=== PATIENT | female | born 1975 | race Caucasian/White ===

== ENCOUNTER 2018-09-14 16:11 | Emergency (ER) | payer SELFPAY ==
[~2018-09-14] VITALS: Ht 165.1 cm; Wt 117.9 kg
[2018-09-14] MEDS ORDERED: cloNIDine 0.1 MG (CATAPRES) TAB ONE (16:43)
[2018-09-14] MEDS ORDERED: cloNIDine 0.2 MG (CATAPRES) TAB PO ONE ×2 (16:45→17:15)
[2018-09-14 17:44] LABS: HEMOGLOBIN 10.8 G/DL (11.5-16.0); RED CELL DISTRIBUTION WIDTH 15.2 % (10.0-14.5); WHITE BLOOD COUNT 8.6 10^3/uL (4.3-11.0)
--- NOTE | 2018-09-14 17:49 | ED Cardiac General ---
History of Present Illness General Chief Complaint: Cardiac/General Problems Stated Complaint: LT EYE BLEEDING, HIGH BP Source: patient Exam Limitations: no limitations History of Present Illness Date Seen by Provider: Sep 14, 2018 Time Seen by Provider: 17:42 Initial Comments Patient is a 43-year-old female long-standing history of hypertension medication noncompliance who presents with elevated blood pressure 220/or 110 at [facility] office. Patient was being evaluated by her [facility] for blurred vision off her left lower visual auguste. Patient was determined to have a retinal hemorrhage and has been referred to [facility] and has a follow-up appointment on Monday. All of the [facility] office, the patient was noted to be hypertensive. Patient does not have a primary care physician nor did she participate in routine healthcare. She has recently quit smoking. Denies headache, chest pain, palpitation, shortness of breath, decreased urinary prep, or increased peripheral edema. Denies acute symptoms at this time. Timing/Duration: other (years ) Allergies and Home Medications Allergies Coded Allergies: codeine (Verified Adverse Reaction, Intermediate, nausea and vomiting, ) Home Medications Labetalol HCl 100 Mg Tablet, 100 MG PO BID Prescribed by: ELLIOTT MUNIZ on 09/14/18 5271 Patient Home Medication List Home Medication List Reviewed: Yes Review of Systems Review of Systems Constitutional: see HPI EENTM: See HPI Respiratory: See HPI Cardiovascular: See HPI Gastrointestinal: See HPI Genitourinary: See HPI Musculoskeletal: see HPI Skin: see HPI Past Purgsym-Nhtitw-Hyihsj Hx Past Med/Social Hx: Reviewed Nursing Past Med/Soc Hx Patient Social History Alcohol Use: Denies Use Recreational Drug Use: No Smoking Status: Former Smoker Type Used: Cigarettes Former Smoker, Quit: Dec 08, 2015 2nd Hand Smoke Exposure: No Recent Foreign Travel: No Contact w/Someone Who Travel: No Recent Hopitalizations: No Physical Abuse: No Sexual Abuse: No Mistreated: No Fear: No Seasonal Allergies Seasonal Allergies: No Past Medical History Surgeries: Yes (carpal tunnel x 2) Tubal Ligation Respiratory: No Cardiac: Yes Hypertension Neurological: No Genitourinary: No Gastrointestinal: No Musculoskeletal: No Endocrine: No HEENT: No Cancer: No Psychosocial: No Physical Exam Vital Signs Capillary Refill : Less Than 3 Seconds Height, Weight, BMI Height: '" Weight: lbs. oz. kg; BMI Method: General Appearance: No Apparent Distress, WD/WN HEENT: PERRL/EOMI, Normal ENT Inspection, Other (dilated pupils) Neck: Supple Respiratory: Chest Non Tender, Lungs Clear Cardiovascular: Regular Rate, Rhythm, No Edema Neurologic/Psychiatric: Alert, Oriented x3, No Motor/Sensory Deficits Focused Exam Sepsis Stage: Ruled Out Progress/Results/Core Measures Results/Orders Lab Results Laboratory Tests Test 09/14/18 17:30 09/14/18 17:38 Range/Units White Blood Count 8.6 4.3-11.0 10^3/uL Red Blood Count 4.95 4.35-5.85 10^6/uL Hemoglobin 10.8 L 11.5-16.0 G/DL Hematocrit 36 35-52 % Mean Corpuscular Volume 73 L 80-99 FL Mean Corpuscular Hemoglobin 22 L 25-34 PG Mean Corpuscular Hemoglobin Concent 30 L 32-36 G/DL Red Cell Distribution Width 15.2 H 10.0-14.5 % Platelet Count 364 130-400 10^3/uL Mean Platelet Volume 10.0 7.4-10.4 FL Sodium Level 138 135-145 MMOL/L Potassium Level 4.1 3.6-5.0 MMOL/L Chloride Level 104 98-107 MMOL/L Carbon Dioxide Level 24 21-32 MMOL/L Anion Gap 10 5-14 MMOL/L Blood Urea Nitrogen 14 7-18 MG/DL Creatinine 0.62 0.60-1.30 MG/DL Estimat Glomerular Filtration Rate > 60 BUN/Creatinine Ratio 23 Glucose Level 105 70-105 MG/DL Calcium Level 9.1 8.5-10.1 MG/DL Urine Color YELLOW Urine Clarity CLEAR Urine pH 6.0 5-9 Urine Specific [place] 1.025 H 1.016-1.022 Urine Protein NEGATIVE NEGATIVE Urine Glucose (UA) NEGATIVE NEGATIVE Urine Ketones NEGATIVE NEGATIVE Urine Nitrite NEGATIVE NEGATIVE Urine Bilirubin NEGATIVE NEGATIVE Urine Urobilinogen 0.2 NORMAL MG/DL Urine Leukocyte Esterase NEGATIVE NEGATIVE Urine RBC (Auto) NEGATIVE NEGATIVE My Orders Orders - ELLIOTT MUNIZ DO Clonidine Tablet (Catapres Tablet) (09/14/18 16:45) Clonidine Tablet (Catapres Tablet) (09/14/18 16:43) Cbc No Diff (09/14/18 17:04) Basic Metabolic Panel (09/14/18 17:04) Urinalysis Dipstick Only (09/14/18 17:04) Labetalol Tablet (Normodyne Tablet) (09/14/18 18:30) Medications Given in ED Current Medications Medications Dose Ordered Sig/[place] Route Start Time Stop Time Status Last Admin Dose Admin Clonidine HCl 0.2 mg ONCE ONCE PO 09/14/18 16:45 09/14/18 16:46 DC 09/14/18 16:47 0.2 MG Labetalol HCl 200 mg ONCE ONCE PO 09/14/18 18:30 09/14/18 18:31 DC 09/14/18 18:21 200 MG Departure Communication (Admissions) Family Conversation Long-standing asymptomatic hypertension with exception of microvascular disease and possible retinal hemorrhage which is being addressed by ophthalmology. Will obtain baseline labs and start patient on blood pressure medications. Discussed with patient the need to follow-up with the primary care physician as her blood pressure will need to brought on gradually over the next several days. PCP referral provided. Return precautions reviewed Impression Primary Impression: Accelerated hypertension Disposition: HOME, SELF-CARE Condition: Improved Departure-Patient Inst. Referrals: NO,LOCAL PHYSICIAN (PCP) Primary Care Physician Patient Instructions: High Blood Pressure in Adults Add. Discharge Instructions: Please take newly prescribed medications as directed. Follow-up with local primary care physician in 3-5 days for reevaluation. Follow-up with [facility] as scheduled on Monday. All discharge instructions reviewed with patient and/or family. Voiced understanding. Scripts Labetalol HCl (Labetalol HCl) 100 Mg Tablet 100 MG PO BID, #60 TAB Prov: ELLIOTT MUNIZ DO 09/14/18 ELLIOTT MUNIZ DO Sep 14, 2018 17:49
[2018-09-14 17:53] LABS: COLOR,URINE YELLOW
[2018-09-14 17:54] LABS: BILIRUBIN,URINE NEGATIVE (NEGATIVE); CLARITY,URINE CLEAR; GLUCOSE, URINE (UA) NEGATIVE (NEGATIVE); KETONES,URINE NEGATIVE (NEGATIVE); LEUKOCYTE ESTERASE ,URINE NEGATIVE (NEGATIVE); NITRITE,URINE NEGATIVE (NEGATIVE); PROTEIN,URINE NEGATIVE (NEGATIVE); UROBILINOGEN,URINE 0.2 MG/DL (NORMAL)
[2018-09-14] MEDS ORDERED: LABETALOL 200 MG (NORMODYNE) TAB PO ONE (18:30)
[2018-09-14 18:36] LABS: CHLORIDE 104 MMOL/L (98-107); POTASSIUM 4.1 MMOL/L (3.6-5.0); SODIUM 138 MMOL/L (135-145)
[2018-09-14 18:37] LABS: BUN/CREATININE RATIO 23; CALCIUM 9.1 MG/DL (8.5-10.1); CARBON DIOXIDE 24 MMOL/L (21-32); CREATININE SERUM 0.62 MG/DL (0.60-1.30); GFR ESTIMATED > 60; GLUCOSE 105 MG/DL (70-105)
[2018-09-14] MEDS ORDERED: LABE100T6 PO (18:47)
[2018-09-14 19:03] VITALS: BP 130/87
== END 2018-09-14 19:05 | disposition home or self-care (01) ==
LOC: ER FS 16:13
DX: I10 Essential (primary) hypertension (principal); Z91.14 Patient's other noncompliance with medication regimen; Z88.5 Allergy status to narcotic agent; Z87.891 Personal history of nicotine dependence; Z98.51 Tubal ligation status
CPT/HCPCS: 36415; 80048; 81002; 85027; 99283